=== PATIENT | female | born 1985 | race American Indian/Alaskan Native ===

== ENCOUNTER 2018-08-06 08:49 | Outpatient (CLI) | payer MEDICAID ==
[2018-08-06 10:41] LABS: Bacteria,Urine 3+ /HPF (Negative); Bilirubin,Urine NEG (Negative); Blood,Urine NEG (Negative); Color,Urine Straw (Yellow); Mucus,Urine FEW /HPF; Protein,Urine <15 mg/dL mg/dL (Negative); Urobilinogen,Urine < 2.0 mg/dL (<2.0)
[2018-08-06 13:22] VITALS: BP 114/59
== END 2018-08-06 14:22 | disposition home or self-care (01) ==
LOC: TRG 08:49
PROVIDERS: ATTEND Obstetrics & Gynecology
DX: O47.02 False labor before 37 completed weeks of gestation, second trimester (principal); Z3A.22 22 weeks gestation of pregnancy
CPT/HCPCS: 59025; 81001

== ENCOUNTER 2018-10-03 00:38 | Outpatient (CLI) | payer MEDICAID ==
[2018-10-03] MEDS ORDERED: LACTATED RINGERS 1,000 ML ONE (01:18)
[2018-10-03] MEDS ORDERED: LACTATED RINGERS 1,000 ML IV ONE (01:42)
[2018-10-03] MEDS ORDERED: LACTATED RINGERS 500 ML IV ONE (01:51)
[2018-10-03] MEDS: BRETHINE SUB-Q SCH ×3 (01:59→02:48)
[2018-10-03 03:14] LABS: Bilirubin,Urine NEG (Negative); Blood,Urine NEG (Negative); Color,Urine Yellow (Yellow); Protein,Urine <15 mg/dL mg/dL (Negative); Urobilinogen,Urine < 2.0 mg/dL (<2.0)
[2018-10-03 03:21] LABS: Amphetamine Screen,Urine PRESUMPTIVE NEGATIVE; Benzodiazepines Screen,Urine PRESUMPTIVE NEGATIVE; Cannabinoid Screen,Urine PRESUMPTIVE NEGATIVE; Cocaine Screen,Urine PRESUMPTIVE NEGATIVE; Methadone Screen,Urine PRESUMPTIVE NEGATIVE; Opiate Screen,Urine PRESUMPTIVE NEGATIVE
[2018-10-03 03:28] VITALS: BP 109/57
[2018-10-03] MEDS ORDERED: BRETHINE ONE (17:00)
== END 2018-10-03 03:55 | disposition home or self-care (01) ==
LOC: TRG 00:38
PROVIDERS: ATTEND Obstetrics & Gynecology
DX: O62.9 Abnormality of forces of labor, unspecified (principal); Z3A.31 31 weeks gestation of pregnancy
CPT/HCPCS: 36415; 80307; 81001; 82731; 96360; 96372; J3105; J7120

== ENCOUNTER 2018-11-30 06:29 | Inpatient (IN) | payer MEDICAID ==
[2018-11-30] MEDS ORDERED: LACTATED RINGERS 1,000 ML ONE (07:59)
--- NOTE | 2018-11-30 08:36 | History and Physical Report ---
History of Present Illness Date of examination: 11/30/18 Date of admission: 11/30/18 06:29 Chief complaint: Induction of labor History of present illness: Pt is a 33yo BF EDC 12/05/18; EGA 39 3/7 weeks presents to L&D for induction of labor due to history of stillbirth @ term. She received late care at [facility] at 35 weeks and co-managed by [facility] for a previous C Section and previous stillbirth. She desires a TOLAC. records are available and GBS is Positive. Past History Past Medical History: no pertinent history Past Surgical History: section [employer] History: herpes (on Valtrex) Social history: no significant social history, single - Obstetrical History Expected Date of Delivery: 12/05/18 Actual Gestation: 39 Week(s) 3 Day(s) : 5 Medications and Allergies Allergies Allergy/AdvReac Type Severity Reaction Status Date / Time No Known Allergies Allergy Verified 10/03/18 01:42 Home Medications Medication Instructions Recorded Confirmed Last Taken Type Pnv,Calcium 72/Iron/Folic Acid 1 tab PO DAILY 10/19/15 02/07/16 10/19/15 09:00 History [ Plus Tablet] 1 Ferrous Sulfate [Feosol 325 MG tab] 325 mg PO BID #60 tablet 02/07/16 Unknown Rx Ibuprofen [Motrin 800 MG tab] 800 mg PO Q6H PRN #30 tablet 02/07/16 Unknown Rx Lidocain2.5%/Prilocai2.5% [Emla] 5 gm TP PRN #1 tube 02/07/16 Unknown Rx oxyCODONE /ACETAMINOPHEN [Percocet 1 - 2 tab PO Q4H PRN #30 tablet 02/07/16 Unknown Rx 5/325 mg] Review of Systems All systems: negative - Vital Signs Vital signs: Vital Signs Pulse BP 71 125/73 11/30/18 07:13 11/30/18 07:13 Temp Pulse Resp BP Pulse Ox 71 18 125/73 11/30/18 07:13 11/30/18 07:14 11/30/18 07:13 - Physical Exam Breasts: Positive: deferred Cardiovascular: Regular rate Lungs: Positive: Clear to auscultation Abdomen: Positive: normal appearance Genitourinary (Female): Positive: normal external genitalia Vagina: Positive: normal moisture Uterus: Positive: enlarged Extremities: Positive: normal - Obstetrical FHR: category 1 Uterine Contraction Monitor Mode: External Cervical Dilatation: 1 Cervical Effacement Percentage: 50 station: -2 Uterine Contraction Pattern: Absent Results Result Diagrams: 11/30/18 07:45 All other labs normal. Assessment and Plan - Patient Problems (1) 39 weeks gestation of Onset Date: 11/30/18 Current Visit: No Status: Acute Plan to address problem: A: IUP @ 39 3/7 weeks Previous C Section Previous stillbirth +GBS P: Admit to L&D for cervidil/pitocin induction of labor Expectant TOLAC IV Ampicillin (2) Prior with demise Onset Date: 11/30/18 Current Visit: No Status: Acute (3) Previous section complicating Onset Date: 11/30/18 Current Visit: Yes Status: Acute
[2018-11-30] MEDS ORDERED: AMPICILLIN/NS 2 GM/100 ML 2 GM/100 ML BAG IV ONE (10:05)
[2018-11-30] MEDS ORDERED: BRETHINE IVP PRN (10:05)
[2018-11-30] MEDS ORDERED: XYLOCAINE 2% INFILTRATI ONE (10:05)
[2018-11-30] MEDS ORDERED: NARCAN 0.4 MG/1 ML IV PRN (10:05)
[2018-11-30] MEDS ORDERED: CERVIDIL VG ONE (10:05)
[2018-11-30] MEDS ORDERED: ZOFRAN IV PRN (10:05)
[2018-11-30] MEDS ORDERED: BRETHINE SUB-Q PRN (10:05)
[2018-11-30] MEDS ORDERED: STADOL IV PRN (10:05)
[2018-11-30 10:30] LABS: Hematocrit 32.8 % (30.3-42.9); Hemoglobin 11.3 gm/dl (10.1-14.3); Mean Corpuscular HGB Conc 35 % (30-34); Mean Corpuscular Volume 92 fl (79-97); Platelet Count 151 K/mm3 (140-440); Red Blood Count 3.57 M/mm3 (3.65-5.03); Red Cell Distribution Width 15.1 % (13.2-15.2)
[2018-11-30] MEDS ORDERED: PITOCin/NS 20 UNIT/1000ML DRIP 20 UNITS/1,000 ML BAG IV SCH (11:00)
[2018-11-30] MEDS ORDERED: PITOCin/NS 30 UNIT/500ML 30 UNITS/500 ML BAG IV SCH ×2 (11:00)
[2018-11-30] MEDS ORDERED: LACTATED RINGERS 1,000 ML IV SCH (11:00)
[2018-11-30] MEDS ORDERED: AMPICILLIN/NS 1 GM/50 ML 1 GM/50 ML BAG IV SCH (14:00)
[2018-11-30] MEDS ORDERED: MINERAL OIL PO PRN (22:00)
[2018-12-01] MEDS ORDERED: AMPICILLIN/NS 2 GM/100 ML 2 GM/100 ML BAG IV ONE (01:12)
[2018-12-01] MEDS: SUBLIMAZE IV PRN ×2 (02:48→04:31)
--- NOTE | 2018-12-01 04:28 | Procedure Note ---
OB Delivery Note - Delivery Date of Delivery: 12/01/18 Surgeon: RUBINA TONG Estimated blood loss: 200cc - Vaginal Delivery presentation: vertex Delivery position: OA Intrapartum events: none Delivery induction: cervidil Delivery augmentation: rupture of membranes, pitocin Delivery monitor: external FHT, external uterine Route of delivery: Delivery placenta: spontaneous Delivery cord: 3 umbilical vessels Episiotomy: none Delivery laceration: none Anesthesia: intravenous Delivery comments: Infant delivered OA and placed on Mom's chest for [id number] bonding and delayed cord clamping. Uterine scar intact. - A at 1 minute: 8 at 5 minutes: 9 Gender: Male (3338gms)
[2018-12-01] MEDS ORDERED: PHENERGAN PR PRN (04:30)
[2018-12-01] MEDS ORDERED: NORCO 5/325 PO PRN (04:30)
[2018-12-01] MEDS ORDERED: BENADRYL PO PRN (04:30)
[2018-12-01] MEDS ORDERED: TUCKS PAD TP PRN (04:30)
[2018-12-01] MEDS ORDERED: MILK OF MAGNESIA PO PRN (04:30)
[2018-12-01] MEDS ORDERED: ZOFRAN IV PRN (04:30)
[2018-12-01] MEDS ORDERED: TYLENOL PO PRN (04:30)
[2018-12-01] MEDS ORDERED: PHENERGAN PO PRN (04:30)
[2018-12-01] MEDS ORDERED: DULCOLAX PR PRN (04:30)
[2018-12-01] MEDS ORDERED: LANSINOH TP PRN (04:30)
[2018-12-01] MEDS ORDERED: SODIUM CHLORIDE FLUSH SYRINGE 10 ML IV PRN (05:00)
[2018-12-01] MEDS ORDERED: PITOCin/NS 20 UNIT/1000ML DRIP 20 UNITS/1,000 ML BAG IV SCH (05:00)
[2018-12-01] MEDS: SENOKOT S PO SCH ×2 (12:45→22:05)
[2018-12-01] MEDS: IBUPROFEN PO SCH ×2 (12:45→19:10)
[2018-12-01] MEDS: FEOSOL PO SCH ×2 (12:45→22:05)
[2018-12-01] MEDS: PRENATAL VITAMIN PO SCH (12:45)
[2018-12-01 17:09] LABS: Hematocrit 33.7 % (30.3-42.9); Hemoglobin 11.3 gm/dl (10.1-14.3)
[2018-12-02] MEDS: IBUPROFEN PO SCH ×6 (01:21→20:15)
[2018-12-02] MEDS ORDERED: M-M-R II VACCINE SUB-Q ONE (04:30)
[2018-12-02] MEDS ORDERED: BOOSTRIX IM ONE (06:00)
--- NOTE | 2018-12-02 07:05 | Progress Note ---
Assessment and Plan - Patient Problems (1) 39 weeks gestation of Onset Date: 11/30/18 Current Visit: No Status: Resolved (2) Prior with demise Onset Date: 11/30/18 Current Visit: No Status: Resolved (3) Previous section complicating Onset Date: 11/30/18 Current Visit: Yes Status: Resolved (4) (vaginal after ) Onset Date: 12/02/18 Current Visit: Yes Status: Resolved Plan to address problem: A: S/P - PPD #1 Doing well P: May go home tomorrow. Subjective - Subjective Date of service: 12/02/18 Principal diagnosis: s/p - PPD #1 Interval history: Pt is feeling well without complaints. Bleeding improved. Patient reports: appetite normal, voiding normally, dizzy ambulation, flatus, ambulating normally, no nauseated : doing well, nursing well, bottle feeding Objective - Vital Signs Latest vital signs: Vital Signs Temp Pulse Resp BP BP Pulse Ox 12/01/18 23:22 98.4 F 61 18 111/72 97 12/01/18 16:05 98.2 F 64 18 118/64 12/01/18 12:40 97.9 F 66 20 117/68 97 12/01/18 08:35 98.2 F 58 L 20 110/56 97 Intake and Output 12/01/18 12/02/18 12/02/18 22:59 06:59 14:59 Intake Total 560 Output Total 900 Balance -340 Intake: Oral 320 Intake, Free Water 240 Output: Urine 900 Void 900 Other: Total, Intake Amount 320 Total, Output Amount 900 # Voids Void 1 - Exam Abdomen: Present: normal appearance, soft Uterus: Present: normal, firm, fundal height below umbilicus Extremities: Present: normal - Labs Labs: Laboratory Tests 11/30/18 11/30/18 11/30/18 07:45 07:45 07:45 WBC 5.9 RBC 3.57 L Hgb 11.3 Hct 32.8 MCV 92 MCH 32 MCHC 35 H RDW 15.1 Plt Count 151 RPR Nonreactive Hep Bs Antigen HIV 1&2 Antibody Rapid HIV P24 Antigen Rubella IgG Antibody Blood Type O POSITIVE Antibody Screen Negative 12/01/18 12/01/18 12/01/18 09:19 09:19 09:19 WBC RBC Hgb Hct MCV MCH MCHC RDW Plt Count RPR Hep Bs Antigen Non-reactive HIV 1&2 Antibody Rapid Non react HIV P24 Antigen Non react Rubella IgG Antibody Immune Blood Type Antibody Screen 12/01/18 16:39 WBC RBC Hgb 11.3 Hct 33.7 MCV MCH MCHC RDW Plt Count RPR Hep Bs Antigen HIV 1&2 Antibody Rapid HIV P24 Antigen Rubella IgG Antibody Blood Type Antibody Screen
--- NOTE | 2018-12-02 07:24 | Discharge Summary ---
Providers - Providers Date of Admission: 11/30/18 06:29 Date of discharge: 12/03/18 Attending physician: RUBINA TONG 11/30/18 10:07 Consult to Case Management [CONS] Routine Services Needed at Discharge: Skid Wrapper Notified:: Jamie Phone number called:: [phone] 12/01/18 Consult to Case Management [CONS] Routine Services Needed at Discharge: Skid Wrapper Notified:: Lorenzo Primary care physician: RUBINA TONG Hospitalization Reason for admission: induction of labor, IUP at term, other (previous c section) Delivery: Episiotomy: none Laceration: none Other procedures: none complications: none Discharge diagnosis: IUP at term delivered, [place] baby: male Hospital course: Unremarkable. Condition at discharge: Good Disposition: DC-01 TO HOME OR SELFCARE - Discharge Diagnoses (1) 39 weeks gestation of Status: Resolved (2) Prior with demise Status: Resolved (3) Previous section complicating Status: Resolved (4) (vaginal after ) Status: Resolved Plan - Discharge Medications Prescriptions: Ferrous Sulfate [Feosol 325 MG tab] 325 mg PO BID #60 tablet Ibuprofen [Motrin 600 MG tab] 600 mg PO Q6HR #30 tablet Vit-Fe Fumar-FA [ Vitamin] 1 each PO QDAY #30 tablet - Provider Discharge Summary Activity: routine, no sex for 6 weeks, no heavy lifting 4 weeks, no strenuous exercise Diet: routine Instructions: routine Additional instructions: [] Smoking cessation referral if applicable(refer to patient education folder for contact #) [] Refer to [facility]'s [facility] Booklet Call your doctor immediately for: * Fever > 100.5 * Heavy vaginal bleeding ( >1 pad per hour) * Severe persistent headache * Shortness of breath * Reddened, hot, painful area to leg or breast * Drainage or odor from incision. * Keep incision clean and dry at all times and follow doctor's instructions regarding bathing/showering - Follow up plan Follow up: RUBINA TONG MD [Primary Care Provider] - 6 Weeks TEGAN BAUER CNM [Advanced Practice Nurse] - 6 Weeks
[2018-12-02] MEDS: SENOKOT S PO SCH ×2 (10:00→22:00)
[2018-12-02] MEDS: FEOSOL PO SCH ×2 (12:06→22:00)
[2018-12-02] MEDS: PRENATAL VITAMIN PO SCH (12:06)
[2018-12-03] MEDS: IBUPROFEN PO SCH ×2 (06:19)
[2018-12-03 13:58] VITALS: BP 131/71
== END 2018-12-03 15:00 | disposition home or self-care (01) | DRG 774 ==
LOC: LD 06:29 → OB 12-01 06:00
PROVIDERS: ADMIT Obstetrics & Gynecology; ATTEND Obstetrics & Gynecology
PROC: 10E0XZZ Delivery of Products of Conception, External Approach (ICD-10-PCS; principal; 2018-12-01)
PROC: 3E0P7VZ Introduction of Hormone into Female Reproductive, Via Natural or Artificial Opening (ICD-10-PCS; 2018-12-01)
DX: O99.824 Streptococcus B carrier state complicating childbirth (principal); O98.32 Other infections with a predominantly sexual mode of transmission complicating childbirth; O34.211 Maternal care for low transverse scar from previous cesarean delivery; Z3A.39 39 weeks gestation of pregnancy; Z37.0 Single live birth
CPT/HCPCS: 36415; 59025; 59200; 85014; 85018; 85027; 86592; 86706; 86762; 86850; 86900; 86901; 87806; 96360; G0378; A6250; J0290; J0595; J2590; J3010; J7120